=== PATIENT | female | born 1945 | race Caucasian/White ===

== ENCOUNTER 2025-05-18 12:43 | Day surgery (SDC) | payer OTHER, SELFPAY ==
[2025-05-18] VITALS (13 sets, daily range): BP systolic 107–127; BP diastolic 56–73; BMI 31.4; BMI 31.1
[2025-05-18] MEDS: LOW STRENGTH ASPIRIN 324 MG PO (13:40)
[2025-05-18 14:03] LABS: Glucose - Point of Care 165 mg/dl (70-99)
[2025-05-18 15:00] LABS: ACT-LR - POC 195 Seconds (116-155)
[2025-05-18 15:09] LABS: ACT-LR - POC 390 Seconds (116-155)
[2025-05-18 15:25] LABS: ACT-LR - POC 166 Seconds (116-155)
[2025-05-18 15:33] LABS: ACT-LR - POC 211 Seconds (116-155)
[2025-05-18] MEDS: NITROGLYCERIN PREMIX 250 IV (15:35)
--- NOTE | 2025-05-18 16:15 | ITS.CL.ANGIO ---
Vitamin Manager - Angioplasty
Angioplasty
Procedure Report:
RIGHT AND LEFT HEART CATHETERIZATION
Date of Procedure: May 18, 2025
Primary Care Physician: Dr. Na Santiago
Primary Cardboard Cutter: Dr. Jase Jon
Procedures performed:
1: Coronary angiography
2: Left ventricular hemodynamic assessment
3: Right heart catheterization
4: Percutaneous coronary intervention of the left anterior descending artery with placement of overlapping drug-eluting stent (2.5 x 38 mm Kenji and 2.5 x 18 mm Kenji)
INDICATION: The patient is an 79-year-old woman with a past medical history significant for permanent atrial fibrillation, left bundle branch block, obesity, diabetes mellitus, moderate to severe mitral regurgitation and a recent drop in left
ventricular ejection fraction by echo. She recently was admitted to [facility] in April with complex gallstone disease and underwent a ERCP during which 1 large stone could not be extracted. She was then advised to be evaluated for
possible cholecystectomy and has plans to get a formal surgical consultation next week with Dr. Valentin Ryan. In preparation for possible elective surgery a nuclear perfusion study was performed which revealed a large territory of LAD territory
ischemia. In light of her dropping ejection fraction and abnormal nuclear perfusion scan she is referred for diagnostic left and right heart cardiac catheterization. Xarelto was held for the procedure. Of note, hemoglobin A1c was 16.6 on April
2024
ACCESS: The patient was prepped and draped in usual sterile fashion. A 6 Welsh sheath was placed in the right radial artery using the Seldinger over the wire technique. A 6 Welsh sheath was then placed in the right common femoral vein using the
same technique.
HEMODYNAMIC FINDINGS (mmHg):
RA(a,v,m): * , 14, 11 patient in atrial fibrillation
RV(s/d,EDP): 52/6, 11
PA(s/d/m): 50/23, 32
PCWP(a,v,m): * , 34, 22
LV(s/d,EDP): 128/7, 16
Ao(s/d,m): 120/63, 87
Oxygen Saturations (mg/dl):
PA: 59% on room air
LV: 94% on room air
Cardiac Output/Index (l/min / l/min/m2):
Estimated Gloria Method: 5.1 / 2.9
Note: Hemoglobin 9.0 g/dL
VALVE HEMODYNAMICS:
No significant aortic or mitral valve stenosis.
ANGIOGRAPHIC FINDINGS:
Single-plane Left Ventriculography in CASTILLO Projection: Not done. Echo performed on May 14, 2025 showed an EF of 40 to 45%.
Coronary Angiography:
Dominance: Right
Left Main: Medium caliber, widely patent.
Left Anterior Descending: The left anterior descending artery is a relatively small caliber vessel that gives rise to 1 major high diagonal branch. The proximal LAD is widely patent. The high diagonal branch has diffuse proximal 40 to 50% disease
with normal distal flow and a fairly long but relatively small caliber bifurcating vessel. The LAD itself has a smooth 70% stenosis in the midportion just before the takeoff of the second major septal branch with diffuse 30 to 50% stenosis beyond
that area over a fairly long length. The distal LAD is widely patent and appears free of focal disease. There is normal flow in all distal vessels.
Ramus intermedius: There is a small to medium caliber ramus intermedius branch present that appears to be widely patent with normal flow.
Left Circumflex: The left circumflex artery is a medium caliber nondominant system that gives rise to 1 major obtuse marginal branch and 2 smaller distal lateral vessels. These vessels are patent with normal distal flow.
Right Coronary: The right coronary artery is a medium caliber dominant vessel that gives rise to a small to medium caliber posterior descending artery and smaller posterior left ventricular branch. These vessels are widely patent with normal flow
and no focal obstructive disease.
PCI of the LAD: In light of the above angiographic findings and the patient's clinical presentation with LAD territory ischemia on her nuclear perfusion imaging study, I elected to proceed with a PCI of the LAD. The patient was pretreated with oral
aspirin. Unfractionated heparin was given. A 6 Welsh XB 3.0 guiding catheter was used to engage the left main. A Hi-Torque floppy wire was advanced down the LAD. A 6 Welsh guide liner was used for additional support and to be able to
selectively image the LAD and used less contrast during the procedure. Predilation was performed with a 2.0 x 30 mm balloon. Next a 2.5 x 38 mm Kenji drug-eluting stent was deployed proximally. Follow-up angiography showed a good post stent result
in the treated segment however there was untreated distal disease that I did not feel comfortable leaving so a second 2.5 x 18 mm Kenji drug-eluting stent was deployed distally in overlapping fashion. The stented segment was postdilated with a 2.5
mm diameter noncompliant balloon at 16 rivera in the distal and mid portions and 18 rivera in the proximal portion. Follow-up angiography showed excellent post stent result in the stented vessel. The second septal digital analytics manager had decremental flow from
plaque shift. The patient did have some chest tightness and discomfort so IV nitroglycerin drip was initiated. These chest discomfort symptoms were substantially reduced at the end of the case. A loading dose of clopidogrel 600 mg was given as a
loading dose on the table.
FINAL RESULT: 0% in-stent residual stenosis with an excellent angiographic result and SUSAN-3 flow in all distal vessels.
Fluoroscopy Time (min): 12.8
Radiation Dose (mGy): 898
DAP (Gy.cm2): 49
Closure device: None. A TR band was appllied for hemostasis at the right wrist. The femoral vein groin sheath will be pulled with manual pressure for hemostasis.
Complications: None.
ASSESSMENT:
1: Successful PCI of the LAD with 2 overlapping drug-eluting stents as described above.
2: Moderately elevated pulmonary pressures with a large V wave on the wedge tracing consistent with significant mitral regurgitation.
3: Preserved cardiac output in the setting of significant anemia.
CONCLUSIONS and RECOMMENDATIONS:
1: Post stent monitoring and medical therapy. The patient will get triple therapy with rivaroxaban 15 mg daily, clopidogrel 75 mg daily and aspirin 81 mg daily for a week followed by rivaroxaban 15 mg daily and clopidogrel 75 mg daily.
2: Follow serial assessments of hemoglobin especially in light of enhanced anticoagulation. There is no active bleeding appreciated and her hemoglobin on the ACT machine today in the lab was a surprise. I will send a CBC now along with a complete
metabolic panel to follow-up on LFTs. Watch hemoglobin serially overnight.
3: Labs from April 23, 2025 show hemoglobin A1c of 16.6. Will repeat this and get diabetic education involved. Obviously good glycemic control is critical in terms of managing all of her issues.
4: Close clinical follow-up.
Maine Drew M.D.
Copy to: [ ]
--- NOTE | 2025-05-18 17:03 | CM ---
spoke to pt in room, she is prev indep, lives alone in a 2 story home with no steps to enter. she denies any dc planning needs or dme's. plan is for dc to home when medcially stable.
[2025-05-18 17:19] LABS: Glucose - Point of Care 159 mg/dl (70-99)
[2025-05-18] MEDS: NOVOLOG FLEXPEN-LOW RESISTANCE 1 UNITS SC (17:49)
[2025-05-18] MEDS: XARELTO 15 MG PO (17:54)
[2025-05-18 17:56] LABS: Hematocrit 27.9 % (37.0-47.0); Hemoglobin 9.2 g/dL (12.0-16.0); Mean Corp Hgb Conc. 33.0 g/dL (33.0-37.0); Mean Corpuscular Volume 85.3 fL (81.0-99.0); Platelet Count 336 10^3/uL (130-400); Red Cell Dist. Width 14.6 % (11.5-14.5)
[2025-05-18 18:27] LABS: ALT (SGPT) 12 U/L (0-35); AST (SGOT) 19 U/L (14-36); Albumin 3.8 g/dl (3.5-5.0); Alkaline Phosphatase 127 U/L (38-126); Blood Urea Nitrogen 17 mg/dl (7-17); Calcium 8.9 mg/dl (8.4-10.2); Carbon Dioxide 24 mmol/L (22-30); Chloride 99 mmol/L (98-107); Estimated Creatinine Clearance 61 ml/min; Glucose 162 mg/dl (70-99); Potassium 3.7 mmol/L (3.5-5.1); Sodium 133 mmol/L (135-145); Total Protein 6.7 g/dl (6.3-8.2); eGFR > 60.00
--- NOTE | 2025-05-18 19:09 | PTCARENOTE ---
~[id number]- Received patient from [facility] s/p LHC/RHC. Pt Aox4, Afib BBB 80s-90s, SBP 100s-120s, RA satting 95% diminished bases. R fem vein site soft, CDI. R radial TR band in place, no oozing or hematoma noted. L eller wound (could be venous) with pink
wound bed POA, cleansed with NSS and J2EE APPLICATION DEVELOPER; Sacrum Stage III wound POA noted with possible fungal border?, site cleansed with NSS and foam applied, wound consult placed; L FA skin tear noted POA BANDAR. Prior to leaving [facility], patient c/o CP. Patient
arrived to IVU on nitro gtt infusing @ 10mcg/min. Pt no longer c/o CP upon arrival, per Dr Ni, 'let notro infuse for a few hours and then titrate off if remains CP free.' Patient c/o nausea and dry heaving, TT sent to [facility], PRN zofran
placed. Nausea subsided after a few minues prior to zofran administration. Patient void in bedpan; pt educated about being bedrest until 1830 post op and about RUE precautions with TR band. Admission charting completed and patient oriented to room
and call reid system. Family at bedside. All needs met at this time, call reid within reach.
~[id number]: Air started to be removed form TR band, no bleeding or hematoma noted at this time. R groin site soft. Pt remains on bedrest. Pt denies nausea or CP at this time. HOB raised to 30 degrees to eat dinner. Bloodwork obtained per order and
sent to lab. All needs met, call reid within reach.
~[id number]: Air continued to be removed from TR band per protocol. Nitro gtt weaned off per protocol, patient CP free at this time. Attempt to remove the last big of air from TR band and site oozing, 3cc air replaced into band. All needs met, call
reid within reach. Handoff report given to nightshift RN.
--- NOTE | 2025-05-18 20:30 | PTCARENOTE ---
Assumed care at 1900. Patient alert and oriented x4. Patient denies any pain. TR band remains in place to right wrist. No oozing noted. Patient normal sinus rhythm on tele. Denies any chest pain. Patient updated on plan of care. Call reid within
reach.
[2025-05-18 22:19] LABS: Glucose - Point of Care 225 mg/dl (70-99)
[2025-05-18] MEDS: TOPROL XL 50 MG PO (22:23)
[2025-05-19 03:34] VITALS: BP 109/68
[2025-05-19 03:59] LABS: Hematocrit 28.2 % (37.0-47.0); Hemoglobin 9.3 g/dL (12.0-16.0); Mean Corp Hgb Conc. 33.0 g/dL (33.0-37.0); Mean Corpuscular Volume 83.9 fL (81.0-99.0); Platelet Count 351 10^3/uL (130-400); Red Cell Dist. Width 14.8 % (11.5-14.5)
[2025-05-19 04:22] LABS: Blood Urea Nitrogen 15 mg/dl (7-17); Calcium 8.8 mg/dl (8.4-10.2); Carbon Dioxide 26 mmol/L (22-30); Chloride 102 mmol/L (98-107); Estimated Creatinine Clearance 53 ml/min; Glucose 154 mg/dl (70-99); HDL Cholesterol 44 mg/dl; LDL Cholesterol, Calculated 58 mg/dl; Potassium 4.3 mmol/L (3.5-5.1); Sodium 133 mmol/L (135-145); Very Low Density Lipoprotein 19 mg/dl (0-30); eGFR > 60.00
[2025-05-19 07:55] VITALS: BP 117/66
[2025-05-19 07:57] LABS: Glucose - Point of Care 191 mg/dl (70-99)
[2025-05-19 08:23] LABS: Glycohemoglobin (HgbA1c) 11.4 % (4.0-5.9)
[2025-05-19 08:39] VITALS: BMI 30.3
--- NOTE | 2025-05-19 08:40 | PTCARENOTE ---
Assumed care of pt from nightshift RN. Pt AAOx4. Appropriate. SR - sinus tach on the tele monitor. HR 90-110s. +Murmur. BP stable. Palpable pulses. +2 LE edema present. Pt on RA. POX 94%. Lung sounds equal and audible. Abdomen round. +BSx4. Voiding
w/o issue. No c/o chest pain. Skin as documented. Cath site intact, no hematoma. PIVx1 intact. Pt updated w/ plan for the day. See worklist for full nursing assessment and interventions. Call reid within reach.
[2025-05-19] MEDS: NOVOLOG FLEXPEN-LOW RESISTANCE 1 UNITS SC (08:41)
[2025-05-19] MEDS: LOW STRENGTH ASPIRIN 81 MG PO (08:42)
[2025-05-19] MEDS: DETROL LA 2 MG PO (08:42)
[2025-05-19] MEDS: ALDACTONE 25 MG PO (08:42)
[2025-05-19] MEDS: LASIX 40 MG PO (08:42)
[2025-05-19] MEDS: KCL 20 MEQ PO (08:42)
[2025-05-19] MEDS: PLAVIX 75 MG PO (08:42)
[2025-05-19] MEDS: PROTONIX 40 MG PO (08:43)
--- NOTE | 2025-05-19 09:08 | W.PN.CARDCBS ---
Addendum entered and electronically signed by Emmanuel Jurado MD 05/19/25 10:22:
I saw and examined the patient.
The CIRCUIT TESTER or PA's note was reviewed and I agree with the note.
Comment: General: Well developed, well nourished in NAD.
Right wrist okay
Stable cardiology status for discharge. Follow-up has been arranged. Discharge summary done. Discussed with Dr. Drew
Addendum entered and electronically signed by LAURA Khan 05/19/25 09:26:
per Dr Drew, he will arrange for 1 week f/u for pt in addition to apptmt already scheduled
Original Note:
Today's Communication / Plan
-
Triple therapy x 1 week with Xarelto 15 mg, clopidogrel 75 mg, and aspirin 81 mg status post JUDY x 2 to LAD, then clopidogrel and Xarelto only
Cardiac rehab and outpatient follow-up arranged
Hgb stable
Impression / Plan
-
PCP:
Primary central control room operator: Last Drew
Impression:
CAD status post JUDY LAD x 2, 05/18/2025
Abnormal nuclear stress test with large ischemia in LAD territory
Permanent atrial fibrillation on Xarelto
Left bundle branch block
Diabetes mellitus, hemoglobin A1c 16.6 04/2025
Moderate to severe MR
LV dysfunction
Obesity
Gallstone disease
Preop for cholecystectomy in outpatient setting
Cardiovascular testing:
Left heart cath 05/18/2025: LAD: Proximal LAD widely patent, high diagonal branch diffuse proximal 40 to 50% disease, mid LAD 70% stenosis with diffuse 30 to 50% stenosis before takeoff of second major septal branch, distal LAD widely patent�status
post PCI of LAD with 2 overlapping drug-eluting stents
Ramus: Widely patent
Left circumflex: Patent
RCA: Widely patent
Plan:
- Status post PCI LAD with JUDY x 2 on 05/18/2025
- Triple therapy with Xarelto 15 mg (takes for permanent A-fib), clopidogrel 75 mg daily, and aspirin 81 mg daily x 1 week, then stop aspirin and continue Xarelto and clopidogrel
-Continue pantoprazole on triple therapy
- Hemoglobin stable overnight, 9.3.
-Telemetry personally reviewed: Normal sinus rhythm with left bundle branch block, heart rates 80s to 90s
- Hemoglobin A1c 11.4, needs diabetes education
- Continue usual outpatient meds: Toprol 50 mg nightly, spironolactone 25 mg daily, Lasix 40 mg daily, potassium supplementation
- Twelve-lead EKG stable: Atrial fibrillation with left bundle branch block
- Cardiac rehab at [place]
-Cardiac follow-up with Dr. Jon has been arranged
Progress Note - Contract Project Manager
Subjective
Date of Service: May 19, 2025
Feels well, no chest pain or shortness of breath
Would like to go home
Objective
Labs:
05/19/25 03:41
05/19/25 03:41
Labs
Hgb 9.3 g/dL (12.0-16.0) L 05/19/25 03:41
Hct 28.2 % (37.0-47.0) L 05/19/25 03:41
Plt Count 351 10^3/uL (130-400) 05/19/25 03:41
Sodium 133 mmol/L (135-145) L 05/19/25 03:41
Potassium 4.3 mmol/L (3.5-5.1) 05/19/25 03:41
BUN 15 mg/dl (7-17) 05/19/25 03:41
Creatinine 0.8 mg/dL (0.6-1.0) 05/19/25 03:41
Glucose 154 mg/dl (70-99) H 05/19/25 03:41
Vital Signs and I&O:
Vital Signs
Temp Pulse Resp BP Pulse Ox
98.2 F 95 18 117/66 94
05/19/25 07:58 05/19/25 08:30 05/19/25 07:58 05/19/25 07:55 05/19/25 07:58
Vital Signs
Temp Pulse Resp BP Pulse Ox
98.2 F 95 18 117/66 94
05/19/25 07:58 05/19/25 08:30 05/19/25 07:58 05/19/25 07:55 05/19/25 07:58
Intake & Output
05/17/25 05/18/25 05/19/25 05/20/25
06:59 06:59 06:59 06:59
Intake Total 240 / 240
Output Total 400 / 400
Balance -160 / -160
Physical Exam
Physical Exam
GEN: No distress, awake, Ox3
HEENT: supple, anicteric, mmm
LUNGS: CTA, no wheezes/rales, 1/6 systolic murmur
ABD: soft, BS+, NT/ND
EXT: trace B/L LE edema. R groin cath site without hematoma, bruit
NEURO: Gross non-focal
SKIN: No rash
--- NOTE | 2025-05-19 09:27 | W.DS.TRANS ---
DC Summary - Layer Out Plate Glass
-
Discharge Instructions:
Sleep Apnea Risk Intermediate
Discharge Diagnosis/Procedures Angioplasty with stent x2 to LAD
Diet Low Cholesterol,Diabetic, Carb Controlled
Driving Restrictions No driving for 24 hours
Other Services Cardiac Rehab
Instructions:
Stand-Alone Forms: DC Instructions- Cath/EP Lab
Changes to Home Medications: Yes
Discharge Medications:
DC Medications w/original date entered in [employer]
cholecalciferol (vitamin D3) 25 mcg (1,000 unit) capsule (Vitamin D3) 1,000 unit PO DAILY 03/17/16
furosemide 20 mg tablet 40 mg PO DAILY edema 05/10/17
multivitamin-ferrous fumarate-folic acid 18 mg-400 mcg tablet (Centrum) 1 ea PO DAILY 05/10/17
potassium chloride 20 mEq tablet,extended release(part/cryst) (Klor-Con M) 20 meq PO DAILY ##30 05/14/17
aspirin 81 mg chewable tablet 81 mg PO DAILY #1 tab 05/18/25
clopidogrel 75 mg tablet 75 mg PO DAILY #30 tabs 05/18/25
metformin 1,000 mg tablet 1,000 mg PO DAILY 05/18/25
metoprolol succinate 50 mg tablet,extended release 24 hr 50 mg PO HS 05/18/25
pantoprazole 40 mg tablet,delayed release 40 mg PO DAILY #30 tabs 05/18/25
rivaroxaban 15 mg tablet (Xarelto) 15 mg PO QPM #30 tabs 05/18/25
spironolactone 25 mg tablet 25 mg PO DAILY 05/18/25
trospium 60 mg capsule,extended release 24 hr 60 mg PO DAILY 05/18/25
Home Medication Changes
new to Clopidogrel
You will stop aspirin after 1 week
Pending Results: No
Total time spent discharging patient (in min): 30
[2025-05-19 11:50] VITALS: BP 111/64
--- NOTE | 2025-05-19 12:40 | PTCARENOTE ---
Discharge instructions reviewed. Questions encouraged and answered. Full set of VS completed. Pt changed into clothes/ tele leads removed. PIVx1 removed. Son at the bedside. Pt transported via wheelchair to son's car ~1235.
== END 2025-05-19 12:35 | disposition home or self-care (01) ==
LOC: CATH 12:43
PROVIDERS: Nurse Practitioner; ATTENDING PHYSICIAN Internal Medicine Interventional Cardiology; FAMILY PHYSICIAN Family Medicine; OTHER PHYSICIAN Internal Medicine Cardiovascular Disease
DX: I25.10 Atherosclerotic heart disease of native coronary artery without angina pectoris (principal); I50.20 Unspecified systolic (congestive) heart failure; E11.9 Type 2 diabetes mellitus without complications; R07.9 Chest pain, unspecified; R94.39 Abnormal result of other cardiovascular function study; I48.21 Permanent atrial fibrillation; I34.0 Nonrheumatic mitral (valve) insufficiency; G47.33 Obstructive sleep apnea (adult) (pediatric); K80.20 Calculus of gallbladder without cholecystitis without obstruction; Z79.899 Other long term (current) drug therapy; Z79.02 Long term (current) use of antithrombotics/antiplatelets; Z79.01 Long term (current) use of anticoagulants; Z79.82 Long term (current) use of aspirin; Z79.84 Long term (current) use of oral hypoglycemic drugs; I44.7 Left bundle-branch block, unspecified; E66.9 Obesity, unspecified; D64.9 Anemia, unspecified; I49.1 Atrial premature depolarization; Z98.890 Other specified postprocedural states
CPT/HCPCS: 80048; 80053; 80061; 82962; 83036; 85027; 85347; 93005; 93460; C1725; C1769; C1874; C1887; C1894; C9600; Q9967